=== PATIENT | male | born 1970 | race Caucasian/White ===

== ENCOUNTER 2022-12-07 08:15 | Day surgery (SDC) | payer OTHER ==
[~2022-12-07] VITALS: Ht 180.3 cm; Wt 120.7 kg
[~2022-12-07 08:15] MED LIST: CIPR250 PO; ENAL10; ENAL10 PO; ENAL20; ENAL20 PO; FLUSAL5005; FURO20 PO; HYDMOR2 PO; HYDMOR4; HYDMOR4 PO; HYDMOR8; HYDMOR8 PO; IBUP800 PO; METO10 PO; METO100ER; METO100ER PO; OMEP20ER PO; OXYACE5T PO; PARO25; PROC10 PO; PROC25S PR; PROM25S PR; PROM50S PR; RANI150; RXHYDMOR2 PO; RXPROACE PO; RXPROM25 PO; RXPROM25S PR; TOPR; TRIHYD253B
[2022-12-07] MEDS ORDERED: ALBU90OI (08:38)
[2022-12-07] MEDS ORDERED: ASPI81CH (08:38)
[2022-12-07] MEDS ORDERED: ATOR80 (08:38)
[2022-12-07] MEDS ORDERED: ZYRTEC10 M2 (08:38)
[2022-12-07] MEDS ORDERED: Vitamin D1000 UNI1 (08:38)
[2022-12-07] MEDS ORDERED: CLOP75 (08:39)
[2022-12-07] MEDS ORDERED: HUMULIN R100 UNIT/2 (08:40)
[2022-12-07] MEDS ORDERED: GABA300 (08:40)
[2022-12-07] MEDS ORDERED: FAMO20 (08:40)
[2022-12-07] MEDS ORDERED: HYDHCL25 (08:41)
[2022-12-07] MEDS ORDERED: ISORDIL (08:41)
[2022-12-07] MEDS ORDERED: Norco 10-325 T1 EACH (08:41)
[2022-12-07] MEDS ORDERED: INSULANPEN (08:41)
[2022-12-07] MEDS ORDERED: METF500 (08:42)
[2022-12-07] MEDS ORDERED: POTCHL20ER (08:42)
[2022-12-07] MEDS ORDERED: NITR.4SL (08:42)
[2022-12-07] MEDS ORDERED: METO50ER (08:42)
[2022-12-07] MEDS ORDERED: LAMO100 (08:42)
[2022-12-07] MEDS ORDERED: PYRI100 (08:43)
[2022-12-07] MEDS ORDERED: TAMS.4ER (08:43)
[2022-12-07 10:52] VITALS: BP 133/75
== END 2022-12-07 10:47 | disposition home or self-care (01) ==
LOC: ORSCSDS 08:15
PROVIDERS: Surgery
PROC: 0DBM8ZX Excision of Descending Colon, Via Natural or Artificial Opening Endoscopic, Diagnostic (ICD-10-PCS; principal; 2022-12-07 09:30)
DX: Z12.11 Encounter for screening for malignant neoplasm of colon (principal); D12.4 Benign neoplasm of descending colon; G47.30 Sleep apnea, unspecified; F41.9 Anxiety disorder, unspecified; J45.909 Unspecified asthma, uncomplicated; J44.9 Chronic obstructive pulmonary disease, unspecified; E11.9 Type 2 diabetes mellitus without complications; K21.9 Gastro-esophageal reflux disease without esophagitis; I10 Essential (primary) hypertension; Z86.73 Personal history of transient ischemic attack (TIA), and cerebral infarction without residual deficits; F17.210 Nicotine dependence, cigarettes, uncomplicated; Z79.4 Long term (current) use of insulin; Z79.82 Long term (current) use of aspirin; Z79.84 Long term (current) use of oral hypoglycemic drugs; Z79.899 Other long term (current) drug therapy
CPT/HCPCS: 82947; 88305; J2704; J7120

== ENCOUNTER → 2023-03-27 | Outpatient (CLI) | payer OTHER ==
[~2023-03-27] MED LIST changes: +ALBU90OI; +ASPI81CH; +ATOR80; +CLOP75; +FAMO20; +GABA300; +HUMULIN R100 UNIT/2; +HYDHCL25; +INSULANPEN; +ISORDIL; +LAMO100; +METF500; +METO50ER; +NITR.4SL; +Norco 10-325 T1 EACH; +POTCHL20ER; +PYRI100; +TAMS.4ER; +Vitamin D1000 UNI1; +ZYRTEC10 M2
== END | disposition home or self-care (01) ==
LOC: LAB 14:11 → LAB SHORT 14:11
PROVIDERS: Physician Assistant
DX: M48.02 Spinal stenosis, cervical region (principal)
CPT/HCPCS: G0480

== ENCOUNTER → 2023-05-25 | Outpatient (CLI) | payer OTHER ==
[~2023-05-25] MED LIST changes: +BACL20 PO; +CEPH500 PO
== END ==
LOC: LAB SHORT 16:33 → LAB 16:33
DX: R30.0 Dysuria (principal)
CPT/HCPCS: 87086

== ENCOUNTER → 2024-01-09 | Outpatient (CLI) | payer OTHER ==
[2024-01-09 13:42] LABS: U Cannabinoids Screen DETECTED; U Methamphetamine Screen DETECTED; U Opiates Screen DETECTED; U Oxycodone Screen DETECTED
[2024-01-09 13:43] LABS: U Amphetamine Screen Not Detected; U Barbituate Screen Not Detected; U Benzodiazapine Screen Not Detected; U Buprenorphine Screen Not Detected; U Cocaine Screen Not Detected; U Methadone Screen Not Detected; U Phencyclidine Screen Not Detected
== END | disposition home or self-care (01) ==
LOC: LAB SHORT 11:10 → LAB 11:10
PROVIDERS: Physician Assistant
DX: M48.02 Spinal stenosis, cervical region (principal)

== ENCOUNTER 2024-11-18 14:42 | Inpatient (IN) | payer OTHER ==
[~2024-11-18] VITALS: Ht 180.3 cm; Wt 99.8 kg
[~2024-11-18 14:42] MED LIST changes: -ALBU90OI; +ALBU90OI INH; -ASPI81CH; +ASPI81CH PO; -ATOR80; +ATOR80 PO; -CLOP75; +CLOP75 PO; -FAMO20; +FAMO20 PO; -GABA300; +GABA300 PO; -LAMO100; +LAMO100 PO; -METO50ER; +METO50ER PO; -POTCHL20ER; +POTCHL20ER PO; -TAMS.4ER; +TAMS.4ER PO; -ZYRTEC10 M2; +ZYRTEC10 M2 PO
[2024-11-18] MEDS ORDERED: NS 1,000 ML IV SCH ×2 (15:25→18:50)
[2024-11-18] MEDS ORDERED: Naloxone HCl 0.4MG / ML 1ML Vial IV ONE (15:25)
[2024-11-18 15:37] LABS: BASOPHILS ABSOLUTE AUTO 0.07 K/mm3 (0.00-0.23); BASOPHILS PERCENT AUTO 0 % (0-2); EOSINOPHILS ABSOLUTE AUTO 0.17 K/mm3 (0.00-0.68); EOSINOPHILS PERCENT AUTO 1 % (0-6); Hematocrit 44.7 % (37.0-53.0); Hemoglobin 14.6 g/dL (13.5-17.5); IMMATURE GRAN ABSOLUTE AUTO 0.08 K/mm3 (0.00-0.10); IMMATURE GRAN PERCENT AUTO 0 % (0-1); LYMPHOCYTES ABSOLUTE AUTO 2.16 K/mm3 (0.84-5.20); LYMPHOCYTES PERCENT AUTO 12 % (21-46); MONOCYTES ABSOLUTE AUTO 1.38 K/mm3 (0.16-1.47); MONOCYTES PERCENT AUTO 8 % (4-13); Mean Corpuscular HGB 27.9 pg (26.0-34.0); Mean Corpuscular HGB Conc 32.7 g/dL (31.5-36.5); Mean Corpuscular Volume 85 fL (80-100); Mean Platelet Volume 10.2 fL (9.1-12.4); NEUTROPHILS ABSOLUTE AUTO 14.13 K/mm3 (1.96-9.15); NEUTROPHILS PERCENT AUTO 79 % (41-73); Platelet Count 381 K/mm3 (150-400); RDW Coefficient Variation 12.9 % (11.7-14.2); RDW Standard Deviation 39.8 fL (35.1-46.3); Red Blood Cell Count 5.24 M/mm3 (4.30-5.90); White Blood Cell Count 17.99 K/mm3 (4.00-11.30)
[2024-11-18] MEDS ORDERED: EPINEPhrine HCl 1 MG/ML 1ML Amp IM ONE ×2 (15:40→15:45)
[2024-11-18] MEDS ORDERED: DiphenhydrAMINE HCl 50 MG/ML 1ML Vial IV ONE (15:40)
[2024-11-18] MEDS ORDERED: MethylPREDNISolone Sod Succ 125 MG Vial IV ONE (15:40)
[2024-11-18 15:44] LABS: Base Excess Venous 4.3 mmol/L; Bicarbonate Venous 27.6 mmol/L (24.0-30.0); PCO2 Venous 44.2 mmHg (38-42); pH Blood Venous 7.42 (7.34-7.37)
[2024-11-18] MEDS ORDERED: EpiNEPhrine 1 MG/1 ML 1ML Vial IM ONE ×2 (15:45)
[2024-11-18 15:49] LABS: Albumin, Blood 3.3 g/dL (3.4-5.0); Albumin/Globulin Ratio 0.9 (0.8-1.8); Bilirubin, Total 0.6 mg/dL (0.1-1.0); Bun/Creatinine Ratio 17.6 (12.0-20.0); Calcium, Blood 9.9 mg/dL (8.5-10.1); Creatinine, Blood 0.85 mg/dL (0.60-1.20); Globulin, Blood 3.5 g/dL (2.2-4.0); Potassium, Blood 4.1 mmol/L (3.5-5.5); Total Protein, Blood 6.8 g/dL (6.4-8.2)
[2024-11-18 16:27] LABS: Free Thyroxine 1.08 ng/dL (0.70-1.60)
[2024-11-18 16:29] LABS: Thyroid Stimulating Hormone 0.765 uIU/mL (0.360-4.800)
[2024-11-18 16:32] LABS: Ethanol (Alcohol), Blood, Med <3 mg/dL
[2024-11-18] MEDS ORDERED: Tranexamic Acid 100 ML IV ONE (16:55)
[2024-11-18] MEDS ORDERED: Doxycycline Hyclate 100 MG in Dextrose 5% 250 ML IV ONE (17:10)
[2024-11-18] MEDS ORDERED: CefTRIAXone Sodium 1,000 MG in NS 100 ML IV ONE (17:10)
[2024-11-18] MEDS ORDERED: CLONAZEPAM1 M1 PO (18:04)
[2024-11-18] MEDS ORDERED: CATAPRES0.1 MG PO (18:04)
[2024-11-18] MEDS ORDERED: TRULICITY0.75 MG/01 (18:05)
[2024-11-18] MEDS ORDERED: DOXE50 PO (18:05)
[2024-11-18] MEDS ORDERED: HYDPAM25 PO (18:08)
[2024-11-18] MEDS ORDERED: HUMALOG KW100 UNIT/1 (18:09)
[2024-11-18] MEDS ORDERED: Robaxin750 MG PO (18:11)
[2024-11-18] MEDS ORDERED: NICO21TP TOP (18:12)
[2024-11-18] MEDS ORDERED: PROM25 PO (18:15)
[2024-11-18] MEDS ORDERED: TRAZ50 PO (18:38)
[2024-11-18] MEDS ORDERED: Ondansetron HCl 2 MG / ML 2ML Vial IV PRN (18:45)
[2024-11-18] MEDS ORDERED: Magnesium Hydroxide Conc 10 ML UDC PO PRN (18:45)
[2024-11-18] MEDS ORDERED: Acetaminophen 325 MG TABLET PO PRN (18:50)
[2024-11-18] MEDS ORDERED: Bisacodyl 10 MG Supp PR PRN (18:50)
[2024-11-18] MEDS ORDERED: Docusate Sodium 100 MG Cap PO SCH (21:00)
[2024-11-18] MEDS ORDERED: Famotidine 10 MG/ML 2ML Vial IV SCH (21:00)
[2024-11-18] MEDS ORDERED: Sennosides 8.6 MG Tab PO SCH (21:00)
[2024-11-18 21:39] VITALS: BP 118/74
[2024-11-19] VITALS (7 sets, daily range): BP systolic 101–154; BP diastolic 55–92
--- NOTE | 2024-11-19 01:24 | NUR ---
SHIFT EVENT 0040 ALERTED BY OUTSIDE ENERGY SALES REPRESENTATIVES THAT PT WANTS WATER AND STATES THAT IF HE DOESN'T GET SOME HE WILL GET IT HIMSELF. THIS NURSE ENTERS ROOM TO TALK WITH PT. PT IS MORE ALERT AT THIS TIME THAN HE HAS BEEN PREVIOUSLY. PT ABLE TO ANSWER QUESTIONS APPROPRIATELY AND IS ALERT AND ORIENTED X4. PT STATES THAT HE HAS BEEN ASKING FOR WATER AND THAT NO ONE HAS GIVEN HIM ANY. THIS NURSE ATTEMPTS TO INFORM PT ON HIS CONDITION UPON ARRIVING TO HOSPITAL THAT WOULD HAVE PREVENTED HIS ABILITY TO DRINK WATER AND THAT DRINKING WATER COULD PRESENT A RISK. PT APPEARS FRUSTRATED WITH ANY EXPLANATION TO WHY HE HAS NOT RECIEVED WATER. PERFORMED SWALLOW SCREEN ON PT. PT ABLE TO SWALLOW LIQUIDS WITHOUT ISSUE. PT THEN RECIEVED SNACKS AFTER ASKING FOR SOME. PT APPEARS ORIENTED AT THIS TIME TO OWN ABILITY. PT STATES CONCERN THAT HE LEFT HIS CANE IN THE ER. THIS NURSE CALLED THE ED AND INFORMED THEM THAT THERE COULD BE A CANE LEFT IN PTs PREVIOUS ROOM. INDIVIDUAL ON PHONE STATES THEY WILL LOOK FOR IT. AT TIME OF THIS NOTE, THIS NURSE HAS NOT HEARD ANYTHING BACK FROM ED. PT NOW APPEARS COMFORTABLE IN ROOM EATING SNACKS. WILL CONTINUE TO MONITOR.
[2024-11-19 03:45] LABS: BASOPHILS ABSOLUTE AUTO 0.02 K/mm3 (0.00-0.23); BASOPHILS PERCENT AUTO 0 % (0-2); EOSINOPHILS PERCENT AUTO 0 % (0-6); Hematocrit 42.6 % (37.0-53.0); IMMATURE GRAN ABSOLUTE AUTO 0.09 K/mm3 (0.00-0.10); IMMATURE GRAN PERCENT AUTO 1 % (0-1); LYMPHOCYTES ABSOLUTE AUTO 0.72 K/mm3 (0.84-5.20); LYMPHOCYTES PERCENT AUTO 4 % (21-46); MONOCYTES ABSOLUTE AUTO 0.65 K/mm3 (0.16-1.47); MONOCYTES PERCENT AUTO 4 % (4-13); Mean Corpuscular HGB 28.7 pg (26.0-34.0); Mean Corpuscular HGB Conc 32.9 g/dL (31.5-36.5); Mean Corpuscular Volume 87 fL (80-100); NEUTROPHILS ABSOLUTE AUTO 14.96 K/mm3 (1.96-9.15); NEUTROPHILS PERCENT AUTO 91 % (41-73); Platelet Count 310 K/mm3 (150-400); RDW Coefficient Variation 12.9 % (11.7-14.2); RDW Standard Deviation 40.5 fL (35.1-46.3); Red Blood Cell Count 4.88 M/mm3 (4.30-5.90); White Blood Cell Count 16.44 K/mm3 (4.00-11.30)
[2024-11-19 04:18] LABS: Magnesium, Blood 1.8 mg/dL (1.6-2.4)
[2024-11-19 04:21] LABS: Albumin, Blood 2.9 g/dL (3.4-5.0); Albumin/Globulin Ratio 0.9 (0.8-1.8); Bilirubin, Total 0.4 mg/dL (0.1-1.0); Calcium, Blood 8.9 mg/dL (8.5-10.1); Creatinine, Blood 0.59 mg/dL (0.60-1.20); Globulin, Blood 3.4 g/dL (2.2-4.0); Potassium, Blood 4.5 mmol/L (3.5-5.5); Total Protein, Blood 6.3 g/dL (6.4-8.2)
--- NOTE | 2024-11-19 06:31 | NUR ---
SHIFT SUMMARY PT HAS TOLERATED REMAINDER OF SHIFT WELL. PT IS CURRENTLY SITTING AT BEDSIDE. PT APPEARS TO BE COMFORTABLE AND HAS NO COMPLAINTS OF PAIN AT THIS TIME. WILL CONTINUE TO MONITOR UNTIL REPORT PASSED TO DAY SHIFT TEAM.
[2024-11-19 07:53] LABS: Source, Urine Clean Catch
[2024-11-19 08:05] LABS: Appearance, Urine Clear (Clear); Bilirubin, Urine Neg (Neg); Blood, Urine Neg (Neg); Color, Urine Yellow (P-Yellow); Glucose Qualitative, Urine 4+ (Neg); Ketones, Urine 1+ (Neg); Leukocyte Esterase, Urine Neg (Neg); Nitrite, Urine Neg (Neg); Protein, Urine 1+ (Neg); Urobilinogen, Urine NORM (Normal)
[2024-11-19] MEDS ORDERED: Enoxaparin 40 MG/0.4 ML SYR SC SCH (09:00)
[2024-11-19] MEDS ORDERED: Doxycycline Hyclate 100 MG in Dextrose 5% 250 ML IV SCH (09:00)
[2024-11-19] MEDS ORDERED: ACET500 PO (11:08)
[2024-11-19] MEDS ORDERED: ISODIN10 PO (11:08)
[2024-11-19] MEDS ORDERED: BUPRENORPHINE HC2 MG SL (11:13)
[2024-11-19] MEDS ORDERED: DOCU100 PO (11:16)
[2024-11-19] MEDS ORDERED: TRULICITY4.5 MG/0.5 SC (11:20)
[2024-11-19] MEDS ORDERED: FURO20 PO (11:21)
[2024-11-19] MEDS ORDERED: INSULANI SC (11:27)
[2024-11-19] MEDS ORDERED: HUMALOG KW100 UNIT/1 SC (11:28)
[2024-11-19] MEDS ORDERED: LOPE2C PO (11:29)
[2024-11-19] MEDS ORDERED: METF500 PO (11:30)
[2024-11-19] MEDS ORDERED: Insulin Regular 100 UNIT/ML 10ML Vial SC SCH ×2 (11:30)
[2024-11-19] MEDS ORDERED: METO25 PO (11:31)
[2024-11-19] MEDS ORDERED: NICOTINE LOZENGE2 MG MM (11:33)
[2024-11-19] MEDS ORDERED: Insulin Glargine-Yfgn 100 Unit/mL 3 ML SYR SC SCH (13:00)
[2024-11-19] MEDS ORDERED: Isosorbide Mono30 MG PO (13:16)
--- NOTE | 2024-11-19 13:18 | NUR ---
PHARMACY CONTACTED THIS RN ABOUT ISOSORBIDE MEDICATION ON PT'S MED REC. THIS RN ASKED PT ABOUT MED. PT REPORTED THAT HE TAKES 30MG ISOSORBIDE MONONITRATE ONCE DAILY. THIS RN UPDATED MED REC AND PHARMACY TO NOTIFY
--- NOTE | 2024-11-19 17:40 | NUR ---
SHIFT SUMMARY PT LETHARGIC FOR MAJORITY OF SHIFT BUT ORIENTED X4. PT ABLE TO EXPRESS NEEDS AND CALLED APPROPIATE. PT INDEPENDENT IN BED, 1 PER ASSIST WHEN UP IN ROOM. PT VSS THROUGHOUT SHIFT WITH O2 SATS IN THE 90'S ON RA. PT REPORTED GENERALIZED ACHING THROUGOUT SHIFT, TREATED PER EMAR. PT ABLE TO SLEEP FOR A COUPLE OF HOURS DURING SHIFT. PT BLOOD SUGARS HIGH DURING SHIFT, TREATED PER EMAR. PT ABLE TO AMBULATE WITHTHERAPY AND THIS RN, TOLERATED FAIR.
[2024-11-19 17:50] LABS: U Amphetamine Screen Not Detected; U Barbituate Screen Not Detected; U Benzodiazapine Screen Not Detected; U Buprenorphine Screen Not Detected; U Cannabinoids Screen DETECTED; U Cocaine Screen Not Detected; U Methadone Screen Not Detected; U Methamphetamine Screen DETECTED; U Opiates Screen Not Detected; U Oxycodone Screen Not Detected; U Phencyclidine Screen Not Detected
[2024-11-19] MEDS ORDERED: CefTRIAXone Sodium 1,000 MG in NS 100 ML IV SCH (18:00)
--- NOTE | 2024-11-19 19:42 | NUR ---
ASSUMPTION OF CARE ASSUMED PT'S CARE AT 1900,BEDSIDE REPORT COMPLETED.PT SITTING UP IN CHAIR.PT REPORTS PAIN.PLAN OF CARE REVIEWED.PT DENIES NEEDS AT THIS TIME.ONGOING MONITORING PER CAREPLAN.CHAIR ALARM ON,CALLM LIGHT AND PT'S ITEMS WITHIN REACH.
[2024-11-19] MEDS ORDERED: Atorvastatin 40 MG Tab PO SCH (21:00)
[2024-11-19] MEDS ORDERED: LamoTRIgine 100 MG Tab PO SCH (21:00)
[2024-11-19] MEDS ORDERED: Lactobacil 2-S.Thermo-Bifido 1 1 Cap PO SCH (21:00)
[2024-11-20] VITALS (7 sets, daily range): BP systolic 143–182; BP diastolic 80–109
[2024-11-20 04:36] LABS: BASOPHILS ABSOLUTE AUTO 0.04 K/mm3 (0.00-0.23); BASOPHILS PERCENT AUTO 0 % (0-2); EOSINOPHILS PERCENT AUTO 1 % (0-6); Hematocrit 43.7 % (37.0-53.0); Hemoglobin 14.2 g/dL (13.5-17.5); IMMATURE GRAN ABSOLUTE AUTO 0.05 K/mm3 (0.00-0.10); IMMATURE GRAN PERCENT AUTO 1 % (0-1); LYMPHOCYTES ABSOLUTE AUTO 2.15 K/mm3 (0.84-5.20); LYMPHOCYTES PERCENT AUTO 23 % (21-46); MONOCYTES ABSOLUTE AUTO 0.79 K/mm3 (0.16-1.47); MONOCYTES PERCENT AUTO 9 % (4-13); Mean Corpuscular HGB 27.7 pg (26.0-34.0); Mean Corpuscular HGB Conc 32.5 g/dL (31.5-36.5); Mean Corpuscular Volume 85 fL (80-100); Mean Platelet Volume 10.2 fL (9.1-12.4); NEUTROPHILS ABSOLUTE AUTO 6.15 K/mm3 (1.96-9.15); NEUTROPHILS PERCENT AUTO 66 % (41-73); Platelet Count 280 K/mm3 (150-400); RDW Coefficient Variation 12.7 % (11.7-14.2); RDW Standard Deviation 39.1 fL (35.1-46.3); Red Blood Cell Count 5.13 M/mm3 (4.30-5.90); White Blood Cell Count 9.28 K/mm3 (4.00-11.30)
[2024-11-20 05:09] LABS: Calcium, Blood 8.7 mg/dL (8.5-10.1); Creatinine, Blood 0.63 mg/dL (0.60-1.20); Potassium, Blood 3.7 mmol/L (3.5-5.5)
--- NOTE | 2024-11-20 06:42 | NUR ---
PT MONITORED DURING THE SHIFT,PT HAS BEEN GETTING UP TO USE THE TOILET USING THE WALKER AND ONE ASSIST.PRN TYLENOL GIVEN FOR PAIN PER PT REQUEST.AT 0430 PT REPORTED CHEST PAIN AND TIGHTNESS,DENIED RADIATION OF PAIN.REPORTED SOB,OXYGEN SATURATION 100% ON RA.HIS SBP ELEVATED IN THE 160'S,LUNG SOUNDS CLEAR IN THE UPPER LOBES AND DIMINISHED IN THE LOWER LOBES.CALL MADE TO THE DOCTOR BUT THERE WAS NO ANSWER.WENT BACK TO THE ROOM TO CHECK ON PT,HE WANTED TO GO TO THE TOILET TO URINATE. THIS NURSE DISCOURAGED PT FROM WALKING TO THE TOILET SINCE HE WAS HAVING CHEST PAIN.PT SAID "NEVER MIND".CHARGE NURSE HELPED HIM USE THE URINAL AT THE BEDSIDE.PT WENT BACK TO BED AND FELL ASLEEP.PT SLEEPING AT THIS TIME,BREATHING EVEN AND NONLABORED.CALL LIGHT AND PT'S ITEMS WITHIN REACH.BED ALARM IN USE.PT DOES NOT USE THE CALL LIGHT TO ASK FOR ASSISTANCE OUT OF BED.MONITORING ONGOING PER CARE GAL.
[2024-11-20] MEDS ORDERED: Metoprolol Succinate 50 MG TABCR PO SCH (09:00)
[2024-11-20] MEDS ORDERED: Aspirin 81 MG Chew PO SCH (09:00)
[2024-11-20] MEDS ORDERED: Furosemide 20 MG Tab PO SCH (09:00)
[2024-11-20] MEDS ORDERED: Tamsulosin HCl 0.4 MG Cap PO SCH (09:00)
[2024-11-20] MEDS ORDERED: Isosorbide Mononitrate 30 MG TABCR PO SCH (09:00)
[2024-11-20] MEDS ORDERED: Clopidogrel Bisulfate 75 MG Tab PO SCH (09:00)
[2024-11-20] MEDS ORDERED: Insulin Glargine-Yfgn 100 Unit/mL 3 ML SYR SC SCH (13:00)
--- NOTE | 2024-11-20 18:38 | NUR ---
SHIFT SUMMARY PATIENT AOX3 ABLE TO MAKE NEEDS KNOWN. HE IS AMBULATING TO THE RESTROOM AND I THE HALLS WITH ASSIST AND A WALKER. HE IS TOLERATING HIS MEALS. HE DOES HAVE CHRONIC BACK AND NECK PAIN THE HE IS GETTING PRN MEDS FOR.
--- NOTE | 2024-11-20 19:06 | NUR ---
TRANSFER NOTE PT TRANSFERRED FROM PCU 9, REPORT RECIEVED FROM PCU NURSE. PT ORIENTED TO THE ROOM.
[2024-11-20] MEDS ORDERED: Doxycycline Hyclate 100 MG TAB PO SCH (21:00)
[2024-11-20] MEDS ORDERED: Famotidine 20 MG Tab PO SCH (21:00)
[2024-11-20] MEDS ORDERED: buprenorphine HCL 2 MG TAB.SUBL SL SCH (21:50)
[2024-11-21 03:46] VITALS: BP 146/96
[2024-11-21 04:55] LABS: BASOPHILS ABSOLUTE AUTO 0.02 K/mm3 (0.00-0.23); BASOPHILS PERCENT AUTO 0 % (0-2); EOSINOPHILS ABSOLUTE AUTO 0.11 K/mm3 (0.00-0.68); EOSINOPHILS PERCENT AUTO 1 % (0-6); Hematocrit 45.8 % (37.0-53.0); Hemoglobin 15.6 g/dL (13.5-17.5); IMMATURE GRAN ABSOLUTE AUTO 0.06 K/mm3 (0.00-0.10); IMMATURE GRAN PERCENT AUTO 1 % (0-1); LYMPHOCYTES ABSOLUTE AUTO 2.25 K/mm3 (0.84-5.20); LYMPHOCYTES PERCENT AUTO 23 % (21-46); MONOCYTES ABSOLUTE AUTO 0.91 K/mm3 (0.16-1.47); MONOCYTES PERCENT AUTO 9 % (4-13); Mean Corpuscular HGB 28.6 pg (26.0-34.0); Mean Corpuscular HGB Conc 34.1 g/dL (31.5-36.5); Mean Corpuscular Volume 84 fL (80-100); NEUTROPHILS PERCENT AUTO 66 % (41-73); Platelet Count 293 K/mm3 (150-400); RDW Coefficient Variation 12.9 % (11.7-14.2); RDW Standard Deviation 38.7 fL (35.1-46.3); Red Blood Cell Count 5.46 M/mm3 (4.30-5.90); White Blood Cell Count 9.85 K/mm3 (4.00-11.30)
[2024-11-21 05:35] LABS: Bun/Creatinine Ratio 18.4 (12.0-20.0); Calcium, Blood 8.8 mg/dL (8.5-10.1); Creatinine, Blood 0.6 mg/dL (0.60-1.20); Potassium, Blood 3.9 mmol/L (3.5-5.5)
--- NOTE | 2024-11-21 06:41 | NUR ---
Shift Summary Pt is c/o severe headache t/o shift. I called the [facility] hospitalist who restarted pt's buprenorphine as indicated in the progress note and med rec. Pt medicated with Tylenol and Zofran for nausea r/t headache. Pt was able to sleep off and on but still states this AM this his headache is 8/10. Tried non-pharm pain interventions such as heating pad and warm wash cloth. Pt is AOx4, SBA w/ FWW.
[2024-11-21 07:55] VITALS: BP 152/84
[2024-11-21] MEDS ORDERED: LACT PO (12:36)
[2024-11-21] MEDS ORDERED: CEPH500 PO (12:37)
--- NOTE | 2024-11-21 13:34 | NUR ---
DISCHARGE NOTE MR CRUMP WAS EAGER TO BE DISCHARGED HOME TODAY AND SAID HE FELT READY FOR DISCHARGE. S/B DR APARICIO THIS MORNING. DISCHARGE INSTRUCTIONS GIVEN TO HIM BY ADOLPH SERRANO RN AND PT LEFT VIA W/C ESCORT WITH OVEN LOADER TO MEET HIS RIDE AT 1250HRS. PIV WAS REMOVED PRIOR TO DISCHARGE. PT WALKED IN THE HALLS THIS MORNING WITH WALKER/ PHYSICAL THERAPIST. HE AMBULATED IN HIS ROOM WITH STEADY GAIT. HE DID C/O MILD HEADACHE AND 7/10 NECK PAIN THAT HE SAID WAS HELPED A LITTLE WITH AM MEDS.
== END 2024-11-21 13:02 | disposition home or self-care (01) | DRG 91 ==
LOC: ER 14:42 → PCU 18:41 → MEDS 11-20 19:03
PROVIDERS: Emergency Medicine; Family Medicine; ADMIT Hospitalist
DX: G92.8 Other toxic encephalopathy (principal); J18.9 Pneumonia, unspecified organism; F11.23 Opioid dependence with withdrawal; F15.10 Other stimulant abuse, uncomplicated; F12.10 Cannabis abuse, uncomplicated; E11.9 Type 2 diabetes mellitus without complications; I11.0 Hypertensive heart disease with heart failure; Z86.79 Personal history of other diseases of the circulatory system; G47.30 Sleep apnea, unspecified; I25.10 Atherosclerotic heart disease of native coronary artery without angina pectoris; Z95.5 Presence of coronary angioplasty implant and graft; M54.2 Cervicalgia; M54.9 Dorsalgia, unspecified; E78.5 Hyperlipidemia, unspecified; F17.210 Nicotine dependence, cigarettes, uncomplicated; Z88.5 Allergy status to narcotic agent; Z88.1 Allergy status to other antibiotic agents; Z88.8 Allergy status to other drugs, medicaments and biological substances; Z79.4 Long term (current) use of insulin; Z79.899 Other long term (current) drug therapy
CPT/HCPCS: 36415; 70450; 70490; 71045; 80048; 80053; 80320; 82803; 82947; 83605; 83735; 83880; 84439; 84443; 85025; 87040; 93005; 93010; 93971; 94760; 97116; 97161; 97530; A9270; J0171; J0696; J1200; J1650; J1815; J2310; J2405; J2919; J7030; J7060

== ENCOUNTER → 2024-12-25 | Outpatient (CLI) | payer OTHER ==
[~2024-12-25] MED LIST changes: +ACET500 PO; +BUPRENORPHINE HC2 MG SL; +CATAPRES0.1 MG PO; +CLONAZEPAM1 M1 PO; +DOCU100 PO; +DOXE50 PO; +HUMALOG KW100 UNIT/1; +HUMALOG KW100 UNIT/1 SC; +HYDPAM25 PO; +INSULANI SC; +ISODIN10 PO; +Isosorbide Mono30 MG PO; +LACT PO; +LOPE2C PO; +METF500 PO; +METO25 PO; +NICO21TP TOP; +NICOTINE LOZENGE2 MG MM; +PROM25 PO; +Robaxin750 MG PO; +TRAZ50 PO; +TRULICITY0.75 MG/01; +TRULICITY4.5 MG/0.5 SC
[2024-12-25 14:14] LABS: BASOPHILS ABSOLUTE AUTO 0.03 K/mm3 (0.00-0.23); BASOPHILS PERCENT AUTO 0 % (0-2); EOSINOPHILS ABSOLUTE AUTO 0.10 K/mm3 (0.00-0.68); EOSINOPHILS PERCENT AUTO 1 % (0-6); Hematocrit 45.6 % (37.0-53.0); Hemoglobin 15.4 g/dL (13.5-17.5); IMMATURE GRAN ABSOLUTE AUTO 0.04 K/mm3 (0.00-0.10); IMMATURE GRAN PERCENT AUTO 0 % (0-1); LYMPHOCYTES ABSOLUTE AUTO 1.62 K/mm3 (0.84-5.20); LYMPHOCYTES PERCENT AUTO 15 % (21-46); MONOCYTES ABSOLUTE AUTO 0.75 K/mm3 (0.16-1.47); MONOCYTES PERCENT AUTO 7 % (4-13); Mean Corpuscular HGB Conc 33.8 g/dL (31.5-36.5); Mean Corpuscular Volume 84 fL (80-100); NEUTROPHILS ABSOLUTE AUTO 8.66 K/mm3 (1.96-9.15); NEUTROPHILS PERCENT AUTO 77 % (41-73); NRBC ABSOLUTE 0.00 K/mm3 (0.00-0.02); NRBC Auto 0.0 /100 WBC (0.0-0.2); Platelet Count 342 K/mm3 (150-400); RDW Coefficient Variation 13.2 % (11.7-14.2); RDW Standard Deviation 39.8 fL (35.1-46.3)
[2024-12-25 14:26] LABS: Alanine Aminotransfer (ALT/SGP 26.0 U/L (12-78); Albumin, Blood 3.3 g/dL (3.4-5.0); Albumin/Globulin Ratio 0.9 (0.8-1.8); Anion Gap 12.0 mmol/L (3-11); Aspartate Aminotrans (AST/SGOT 16.0 U/L (12-37); Bilirubin, Total 0.2 mg/dL (0.1-1.0); Blood Urea Nitrogen 6.0 mg/dL (8-24); CO2, Blood 27.0 mmol/L (21-32); Calcium, Blood 9.3 mg/dL (8.5-10.1); Chloride, Blood 99.0 mmol/L (98-108); Creatinine, Blood 0.88 mg/dL (0.60-1.20); Globulin, Blood 3.8 g/dL (2.2-4.0); Glucose, Blood 444.0 mg/dL (70-99); Potassium, Blood 4.0 mmol/L (3.5-5.5); Sodium, Blood 134.0 mmol/L (136-145); Total Protein, Blood 7.1 g/dL (6.4-8.2)
== END ==
LOC: LAB 14:10 → LAB SHORT 14:10
PROVIDERS: Physician Assistant
DX: R06.00 Dyspnea, unspecified (principal)
CPT/HCPCS: 80053; 84484; 85025

== ENCOUNTER → 2025-01-29 | Outpatient (CLI) | payer OTHER ==
[2025-01-29 20:47] LABS: Creatinine, Urine Random 25.5 mg/dL (27.00-270.00); Microalb/Creat Ratio UR, Rand 62.745 mg/g (0.000-30.000); Microalbumin, Random Urine 16.0 mg/L (0.000-20.000)
== END ==
LOC: LAB SHORT 17:28 → LAB 17:28
PROVIDERS: Physician Assistant
DX: E11.65 Type 2 diabetes mellitus with hyperglycemia (principal); Z79.4 Long term (current) use of insulin
CPT/HCPCS: 82043; 82570

== ENCOUNTER → 2025-01-30 | Outpatient (CLI) | payer OTHER ==
[2025-01-30 12:55] LABS: BASOPHILS ABSOLUTE AUTO 0.06 K/mm3 (0.00-0.23); BASOPHILS PERCENT AUTO 1 % (0-2); EOSINOPHILS ABSOLUTE AUTO 0.13 K/mm3 (0.00-0.68); EOSINOPHILS PERCENT AUTO 1 % (0-6); Hematocrit 47.8 % (37.0-53.0); Hemoglobin 15.9 g/dL (13.5-17.5); IMMATURE GRAN ABSOLUTE AUTO 0.13 K/mm3 (0.00-0.10); IMMATURE GRAN PERCENT AUTO 1 % (0-1); LYMPHOCYTES ABSOLUTE AUTO 2.17 K/mm3 (0.84-5.20); LYMPHOCYTES PERCENT AUTO 17 % (21-46); MONOCYTES ABSOLUTE AUTO 0.92 K/mm3 (0.16-1.47); MONOCYTES PERCENT AUTO 7 % (4-13); Mean Corpuscular HGB Conc 33.3 g/dL (31.5-36.5); Mean Corpuscular Volume 87 fL (80-100); NEUTROPHILS ABSOLUTE AUTO 9.59 K/mm3 (1.96-9.15); NEUTROPHILS PERCENT AUTO 74 % (41-73); NRBC ABSOLUTE 0.00 K/mm3 (0.00-0.02); NRBC Auto 0.0 /100 WBC (0.0-0.2); Platelet Count 344 K/mm3 (150-400); RDW Coefficient Variation 13.5 % (11.7-14.2); RDW Standard Deviation 42.6 fL (35.1-46.3)
[2025-01-30 13:05] LABS: Alanine Aminotransfer (ALT/SGP 35.0 U/L (12-78); Albumin, Blood 3.6 g/dL (3.4-5.0); Albumin/Globulin Ratio 0.9 (0.8-1.8); Anion Gap 10.0 mmol/L (3-11); Aspartate Aminotrans (AST/SGOT 17.0 U/L (12-37); Bilirubin, Total 0.6 mg/dL (0.1-1.0); Blood Urea Nitrogen 11.0 mg/dL (8-24); CO2, Blood 33.0 mmol/L (21-32); Calcium, Blood 9.9 mg/dL (8.5-10.1); Chloride, Blood 97.0 mmol/L (98-108); Creatinine, Blood 0.87 mg/dL (0.60-1.20); Globulin, Blood 3.8 g/dL (2.2-4.0); Glucose, Blood 365.0 mg/dL (70-99); Potassium, Blood 4.7 mmol/L (3.5-5.5); Sodium, Blood 135.0 mmol/L (136-145); Total Protein, Blood 7.4 g/dL (6.4-8.2)
== END ==
LOC: LAB SHORT 12:50 → LAB 12:50
PROVIDERS: Physician Assistant
DX: R73.9 Hyperglycemia, unspecified (principal)
CPT/HCPCS: 80053; 85025

== ENCOUNTER 2025-02-12 09:41 | Emergency (ER) | payer OTHER ==
[~2025-02-12] VITALS: Ht 180.3 cm; Wt 103.4 kg
[2025-02-12 10:31] LABS: BASOPHILS ABSOLUTE AUTO 0.05 K/mm3 (0.00-0.23); BASOPHILS PERCENT AUTO 1 % (0-2); EOSINOPHILS ABSOLUTE AUTO 0.13 K/mm3 (0.00-0.68); EOSINOPHILS PERCENT AUTO 1 % (0-6); Hematocrit 40.3 % (37.0-53.0); Hemoglobin 13.6 g/dL (13.5-17.5); IMMATURE GRAN ABSOLUTE AUTO 0.12 K/mm3 (0.00-0.10); IMMATURE GRAN PERCENT AUTO 1 % (0-1); LYMPHOCYTES ABSOLUTE AUTO 1.67 K/mm3 (0.84-5.20); LYMPHOCYTES PERCENT AUTO 16 % (21-46); MONOCYTES ABSOLUTE AUTO 1.01 K/mm3 (0.16-1.47); MONOCYTES PERCENT AUTO 10 % (4-13); Mean Corpuscular HGB Conc 33.7 g/dL (31.5-36.5); Mean Corpuscular Volume 86 fL (80-100); NEUTROPHILS ABSOLUTE AUTO 7.35 K/mm3 (1.96-9.15); NEUTROPHILS PERCENT AUTO 71 % (41-73); NRBC ABSOLUTE 0.00 K/mm3 (0.00-0.02); NRBC Auto 0.0 /100 WBC (0.0-0.2); Platelet Count 299 K/mm3 (150-400); RDW Coefficient Variation 13.6 % (11.7-14.2); RDW Standard Deviation 41.8 fL (35.1-46.3)
[2025-02-12 10:50] LABS: Alanine Aminotransfer (ALT/SGP 45.0 U/L (12-78); Albumin, Blood 3.2 g/dL (3.4-5.0); Albumin/Globulin Ratio 0.9 (0.8-1.8); Anion Gap 8.0 mmol/L (3-11); Aspartate Aminotrans (AST/SGOT 17.0 U/L (12-37); Bilirubin, Total 0.2 mg/dL (0.1-1.0); Blood Urea Nitrogen 12.0 mg/dL (8-24); CO2, Blood 30.0 mmol/L (21-32); Calcium, Blood 9.1 mg/dL (8.5-10.1); Chloride, Blood 99.0 mmol/L (98-108); Creatinine, Blood 0.63 mg/dL (0.60-1.20); Globulin, Blood 3.4 g/dL (2.2-4.0); Glucose, Blood 350.0 mg/dL (70-99); Potassium, Blood 3.9 mmol/L (3.5-5.5); Sodium, Blood 133.0 mmol/L (136-145); Total Protein, Blood 6.6 g/dL (6.4-8.2)
[2025-02-12 11:30] VITALS: BP 123/81
== END 2025-02-12 13:33 | disposition home or self-care (01) ==
LOC: ER 09:41
PROVIDERS: Student in an Organized Health Care Education/Training Program
DX: R07.89 Other chest pain (principal); Z88.5 Allergy status to narcotic agent; Z88.8 Allergy status to other drugs, medicaments and biological substances; Z79.4 Long term (current) use of insulin; Z79.899 Other long term (current) drug therapy; Z79.2 Long term (current) use of antibiotics; E11.9 Type 2 diabetes mellitus without complications; G47.33 Obstructive sleep apnea (adult) (pediatric); Z79.84 Long term (current) use of oral hypoglycemic drugs
CPT/HCPCS: 71275; 80053; 82947; 83690; 84484; 85025; 93005; 93010; 99285-25; Q9967

== ENCOUNTER 2025-04-25 16:59 | Emergency (ER) | payer OTHER ==
[~2025-04-25] VITALS: Ht 180.3 cm; Wt 102.1 kg
[2025-04-25 17:50] LABS: BASOPHILS ABSOLUTE AUTO 0.06 K/mm3 (0.00-0.23); BASOPHILS PERCENT AUTO 1 % (0-2); EOSINOPHILS ABSOLUTE AUTO 0.15 K/mm3 (0.00-0.68); EOSINOPHILS PERCENT AUTO 1 % (0-6); Hematocrit 47.7 % (37.0-53.0); Hemoglobin 15.9 g/dL (13.5-17.5); IMMATURE GRAN ABSOLUTE AUTO 0.09 K/mm3 (0.00-0.10); IMMATURE GRAN PERCENT AUTO 1 % (0-1); LYMPHOCYTES ABSOLUTE AUTO 1.69 K/mm3 (0.84-5.20); LYMPHOCYTES PERCENT AUTO 15 % (21-46); MONOCYTES ABSOLUTE AUTO 0.84 K/mm3 (0.16-1.47); MONOCYTES PERCENT AUTO 7 % (4-13); Mean Corpuscular HGB Conc 33.3 g/dL (31.5-36.5); Mean Corpuscular Volume 86 fL (80-100); NEUTROPHILS ABSOLUTE AUTO 8.72 K/mm3 (1.96-9.15); NEUTROPHILS PERCENT AUTO 76 % (41-73); NRBC ABSOLUTE 0.00 K/mm3 (0.00-0.02); NRBC Auto 0.0 /100 WBC (0.0-0.2); Platelet Count 316 K/mm3 (150-400); RDW Coefficient Variation 12.6 % (11.7-14.2); RDW Standard Deviation 39.2 fL (35.1-46.3)
[2025-04-25 18:23] LABS: Alanine Aminotransfer (ALT/SGP 28.0 U/L (12-78); Albumin, Blood 3.1 g/dL (3.4-5.0); Albumin/Globulin Ratio 0.8 (0.8-1.8); Anion Gap 10.0 mmol/L (3-11); Aspartate Aminotrans (AST/SGOT 14.0 U/L (12-37); Bilirubin, Total 0.4 mg/dL (0.1-1.0); Blood Urea Nitrogen 12.0 mg/dL (8-24); CO2, Blood 26.0 mmol/L (21-32); Calcium, Blood 9.0 mg/dL (8.5-10.1); Chloride, Blood 96.0 mmol/L (98-108); Creatinine, Blood 0.63 mg/dL (0.60-1.20); Globulin, Blood 3.7 g/dL (2.2-4.0); Glucose, Blood 708.0 mg/dL (70-99); Potassium, Blood 4.3 mmol/L (3.5-5.5); Sodium, Blood 128.0 mmol/L (136-145); Total Protein, Blood 6.8 g/dL (6.4-8.2)
[2025-04-25] MEDS ORDERED: Insulin Glargine,Hum.Rec.Anlog 100 UNIT/ML 3MLSYR SC ONE (18:35)
[2025-04-25] MEDS ORDERED: Insulin Human Lispro 100 Units/ML 3ML Syringe SC ONE (18:40)
[2025-04-25] MEDS ORDERED: NS 1,000 ML IV SCH (18:45)
[2025-04-25] MEDS ORDERED: Insulin Glargine 100 Unit/ML 3 ML SYR SC ONE (18:50)
[2025-04-25 19:59] LABS: Source, Urine Clean Catch
[2025-04-25] MEDS ORDERED: HYDROcodone 10-APAP 325 TAB PO ONE (20:00)
[2025-04-25 20:02] LABS: Bilirubin, Urine Neg (Neg); Color, Urine Yellow (P-Yellow); Glucose Qualitative, Urine 4+ (Neg); Ketones, Urine Neg (Neg); Leukocyte Esterase, Urine Neg (Neg); Protein, Urine Neg (Neg); Specific Gravity, Urine 1.010 (1.003-1.022); Urobilinogen, Urine NORM (Normal)
[2025-04-25 20:35] LABS: Glucose, Blood 580 mg/dL (70-99)
[2025-04-25 21:22] VITALS: BP 178/43
== END 2025-04-25 21:22 | disposition home or self-care (01) ==
LOC: ER 16:59
PROVIDERS: Physician Assistant
DX: R53.83 Other fatigue (principal); E11.65 Type 2 diabetes mellitus with hyperglycemia; E87.1 Hypo-osmolality and hyponatremia; G47.30 Sleep apnea, unspecified; Z86.73 Personal history of transient ischemic attack (TIA), and cerebral infarction without residual deficits; Z79.02 Long term (current) use of antithrombotics/antiplatelets; Z79.899 Other long term (current) drug therapy; Z88.5 Allergy status to narcotic agent; Z88.1 Allergy status to other antibiotic agents; Z88.8 Allergy status to other drugs, medicaments and biological substances; Z88.6 Allergy status to analgesic agent
CPT/HCPCS: 71046; 80053; 81003; 82947; 83880; 84484; 85025; 93005; 93010; 96360; 99284-25; A9270; J1815; J7030